=== PATIENT | male | born 1960 | race Two or more races ===

== ENCOUNTER 2020-11-05 16:59 | Inpatient (IN) | payer BC ==
[~2020-11-05] VITALS: Ht 177.8 cm; Wt 108.9 kg
[2020-11-05] MEDS ORDERED: ASPIRIN 81MG TABLET PO ONE (17:45)
[2020-11-05 18:14] LABS: BASOPHILS % 1.1 % (0.0-2.0); EOSINOPHILS % 2.2 % (0.0-5.0); LYMPHOCYTES % 18.6 % (20.0-50.0); MEAN CORPUSCULAR HEMOGLOBIN 24.8 pg (28.0-32.0); MEAN CORPUSCULAR VOLUME 78.1 fL (80.0-94.0); MEAN PLATELET VOLUME 10.3 fl (7.4-10.4); MONOCYTES % 5.7 % (2.0-8.0); NEUTROPHILS % 72.4 % (40.0-76.0); PLATELET 150 x1000/uL (130-400); RED BLOOD CELL COUNT 5.63 mill/uL (4.7-6.1); RED CELL DISTRIBUTION WIDTH 15.3 % (11.6-14.6)
[2020-11-05 18:22] LABS: INR 1.1; PROTHROMBIN TIME 11.7 sec (9.6-11.0)
[2020-11-05 18:34] LABS: CHLORIDE 109 mEq/L (98-107)
[2020-11-05] MEDS: FUROSEMIDE 20MG/2ML VIAL IVP NR ×2 (19:00→20:34)
[2020-11-05] MEDS ORDERED: ACETAMINOPHEN 325MG TABLET PO PRN ×2 (21:00)
[2020-11-05] MEDS ORDERED: ZOLPIDEM TARTRATE 5MG TABLET PO PRN (21:00)
[2020-11-05] MEDS ORDERED: NA PHOS,M-B/NA PHOS,DI-BA ENEMA 118ML PR PRN (21:00)
[2020-11-05] MEDS ORDERED: MAGNESIUM/ALUMINUM HYDROXIDE/SIMETHICONE 30ML UDC PO PRN (21:00)
[2020-11-05] MEDS ORDERED: POTASSIUM CHLORIDE 20MEQ TABLET SR PO NR (21:39)
[2020-11-05] MEDS: APIXABAN 5 MG TABLET PO SCH (21:45)
[2020-11-05] MEDS ORDERED: ENOXAPARIN 40MG/0.4ML SYR SUBCUT SCH (22:00)
[2020-11-05 22:01] LABS: PHOSPHORUS 4.2 mg/dL (2.5-4.9)
[2020-11-05] MEDS: SODIUM CHLORIDE 0.9% INJ 3ML FLUSH IVF SCH (22:23)
[2020-11-06 04:02] LABS: CHLORIDE 106 mEq/L (98-107)
[2020-11-06 04:03] LABS: BASOPHILS % 0.9 % (0.0-2.0); EOSINOPHILS % 2.6 % (0.0-5.0); HEMATOCRIT. 44.2 % (42.0-52.0); LYMPHOCYTES % 23.5 % (20.0-50.0); MEAN CORPUSCULAR VOLUME 78.8 fL (80.0-94.0); MEAN PLATELET VOLUME 9.9 fl (7.4-10.4); MONOCYTES % 7.5 % (2.0-8.0); NEUTROPHILS % 65.5 % (40.0-76.0); PLATELET 151 x1000/uL (130-400); RED BLOOD CELL COUNT 5.62 mill/uL (4.7-6.1); RED CELL DISTRIBUTION WIDTH 15.3 % (11.6-14.6)
[2020-11-06 04:09] LABS: PHOSPHORUS 4.1 mg/dL (2.5-4.9)
[2020-11-06] MEDS: SODIUM CHLORIDE 0.9% INJ 3ML FLUSH IVF SCH ×2 (06:03→13:37)
[2020-11-06 09:00] VITALS: BP 123/87
[2020-11-06] MEDS: FUROSEMIDE 40MG/4ML VIAL IVP SCH (10:05)
[2020-11-06] MEDS: AMLODIPINE 5MG TABLET PO SCH ×2 (10:05→11:24)
[2020-11-06] MEDS: SPIRONOLACTONE 25MG TABLET PO SCH ×2 (10:06→17:19)
[2020-11-06] MEDS: APIXABAN 5 MG TABLET PO SCH ×2 (10:06→21:39)
[2020-11-06] MEDS: THIAMINE HCL 100MG TABLET PO SCH (10:06)
[2020-11-06] MEDS: METOPROLOL TARTRATE 50MG TABLET PO SCH ×3 (10:07→21:39)
[2020-11-06] MEDS: SOTALOL HCL 80MG TABLET PO SCH ×3 (10:15→21:39)
[2020-11-06] MEDS ORDERED: AMLO5TAB88 PO (11:42)
[2020-11-06] MEDS ORDERED: SACU1TAB4 MT (11:42)
[2020-11-06] MEDS ORDERED: IBUP-2030 PO (11:42)
[2020-11-06] MEDS ORDERED: APIX5TAB PO (11:42)
[2020-11-06] MEDS ORDERED: METO-411 MT (11:42)
[2020-11-06] MEDS ORDERED: ASPI-1497 PO (11:42)
[2020-11-06] MEDS ORDERED: FURO20TA4 PO (11:42)
[2020-11-06] MEDS ORDERED: SOTA80TA25 PO (11:42)
[2020-11-06] MEDS ORDERED: FAMO20TA8 PO (11:42)
[2020-11-06 12:00] VITALS: BP 106/77
[2020-11-06 16:00] VITALS: BP 107/78
[2020-11-06 20:00] VITALS: BP 108/76
[2020-11-06] MEDS: FAMOTIDINE 20MG TABLET PO SCH (21:39)
[2020-11-07] VITALS: BP 115/66
[2020-11-07] MEDS: SODIUM CHLORIDE 0.9% INJ 3ML FLUSH IVF SCH ×4 (00:32→21:22)
[2020-11-07 04:00] VITALS: BP 105/72
[2020-11-07 08:00] VITALS: BP 117/72
[2020-11-07] MEDS: APIXABAN 5 MG TABLET PO SCH ×2 (08:37→21:22)
[2020-11-07] MEDS: THIAMINE HCL 100MG TABLET PO SCH (08:38)
[2020-11-07] MEDS: AMLODIPINE 5MG TABLET PO SCH (08:38)
[2020-11-07] MEDS: SPIRONOLACTONE 25MG TABLET PO SCH ×2 (08:38→17:36)
[2020-11-07] MEDS: METOPROLOL TARTRATE 50MG TABLET PO SCH ×2 (08:38→21:22)
[2020-11-07] MEDS: FUROSEMIDE 40MG/4ML VIAL IVP SCH (08:39)
[2020-11-07] MEDS: SOTALOL HCL 80MG TABLET PO SCH ×2 (08:39→21:21)
[2020-11-07 12:00] VITALS: BP 123/54
[2020-11-07 16:00] VITALS: BP 106/65
[2020-11-07] MEDS: DIPHENHYDRAMINE 25MG CAPSULE PO PRN ×2 (17:36→21:29)
[2020-11-07 20:00] VITALS: BP 101/66
[2020-11-07] MEDS: FAMOTIDINE 20MG TABLET PO SCH (21:22)
[2020-11-08] VITALS: BP 95/52
[2020-11-08 03:41] VITALS: BP 128/80
[2020-11-08] MEDS: SODIUM CHLORIDE 0.9% INJ 3ML FLUSH IVF SCH ×3 (06:10→21:06)
[2020-11-08 08:00] VITALS: BP 100/62
[2020-11-08] MEDS: SPIRONOLACTONE 25MG TABLET PO SCH ×2 (09:45→17:27)
[2020-11-08] MEDS: THIAMINE HCL 100MG TABLET PO SCH (09:45)
[2020-11-08] MEDS: METOPROLOL TARTRATE 50MG TABLET PO SCH ×2 (09:45→21:00)
[2020-11-08] MEDS: FUROSEMIDE 40MG/4ML VIAL IVP SCH (09:46)
[2020-11-08] MEDS: SOTALOL HCL 80MG TABLET PO SCH ×2 (09:46→21:00)
[2020-11-08] MEDS: AMLODIPINE 5MG TABLET PO SCH (09:46)
[2020-11-08] MEDS: APIXABAN 5 MG TABLET PO SCH ×2 (09:46→21:06)
[2020-11-08 12:00] VITALS: BP 98/65
[2020-11-08 16:00] VITALS: BP 101/74
[2020-11-08] MEDS ORDERED: IBUPROFEN 800MG TABLET PO PRN (18:00)
[2020-11-08 20:00] VITALS: BP 99/65
[2020-11-08] MEDS: FAMOTIDINE 20MG TABLET PO SCH (21:06)
[2020-11-09] VITALS: BP 120/72
[2020-11-09 04:00] VITALS: BP 140/83
[2020-11-09] MEDS: SODIUM CHLORIDE 0.9% INJ 3ML FLUSH IVF SCH (05:44)
[2020-11-09] MEDS: SPIRONOLACTONE 25MG TABLET PO SCH (09:00)
[2020-11-09] MEDS: SOTALOL HCL 80MG TABLET PO SCH (09:00)
[2020-11-09] MEDS: METOPROLOL TARTRATE 50MG TABLET PO SCH (09:00)
[2020-11-09] MEDS: AMLODIPINE 5MG TABLET PO SCH (09:00)
[2020-11-09] MEDS: FUROSEMIDE 40MG/4ML VIAL IVP SCH (11:02)
[2020-11-09] MEDS: THIAMINE HCL 100MG TABLET PO SCH (11:02)
[2020-11-09] MEDS: APIXABAN 5 MG TABLET PO SCH (11:02)
[2020-11-09] MEDS ORDERED: LOSARTAN POTASSIUM 25 MG TABLET PO SCH (15:30)
[2020-11-09 18:04] VITALS: BP 115/85
== END 2020-11-09 18:40 | disposition home or self-care (01) | DRG 280 ==
LOC: ER 16:59 → MICUSO 19:59 → 8WST 11-06 07:33
PROVIDERS: ADMIT Internal Medicine; ATTEND Internal Medicine
PROC: 4B02XTZ Measurement of Cardiac Defibrillator, External Approach (ICD-10-PCS; principal; 2020-11-09)
DX: I11.0 Hypertensive heart disease with heart failure (principal); I21.4 Non-ST elevation (NSTEMI) myocardial infarction; R57.8 Other shock; I47.2 Ventricular tachycardia; I49.9 Cardiac arrhythmia, unspecified; I50.23 Acute on chronic systolic (congestive) heart failure; I42.8 Other cardiomyopathies; I48.0 Paroxysmal atrial fibrillation; I25.10 Atherosclerotic heart disease of native coronary artery without angina pectoris; E66.9 Obesity, unspecified; Z95.1 Presence of aortocoronary bypass graft; I08.0 Rheumatic disorders of both mitral and aortic valves; Z95.810 Presence of automatic (implantable) cardiac defibrillator
CPT/HCPCS: 36415; 71045; 80053; 83735; 83880; 84100; 84484; 85025; 87426; 93005; 93306; 93970; 96374; 99291; J1940; Q0163